=== PATIENT | male | born 1950 | race African-American/Black ===

== ENCOUNTER 2021-09-25 20:02 | Emergency (ER) | payer OTHER ==
[2021-09-25 20:11] VITALS: BP 166/94; PULSE 80; TEMP 98.3; BMI 29.1
[2021-09-25] MEDS ORDERED: ACETAMINOPHEN 500 MG TABLET (FP) PO ONE (22:44)
[2021-09-25] MEDS ORDERED: ACETAMINOPHEN 500 MG TABLET (FP) ONE (22:44)
== END 2021-09-25 22:56 | disposition home or self-care (01) ==
LOC: JER 20:02 → JERFT 20:02
DX: K91.840 Postprocedural hemorrhage of a digestive system organ or structure following a digestive system procedure (principal)
CPT/HCPCS: 99283-25